=== PATIENT | female | born 1965 | race Caucasian/White ===

== ENCOUNTER 2019-03-30 18:19 | Observation (INO) | payer BC ==
[2019-03-30 18:51] LABS: Basophils % 0.4 % (0-1.3); Hematocrit 36.5 % (36.0-45.0); Lymphocytes % 15.2 % (15.3-44.8); MPV 8.6 fL (7.6-11.3); RBC Red Blood Cell Count 3.87 M/uL (3.86-4.86)
[2019-03-30 18:56] LABS: Protime INR 0.96
[2019-03-30] MEDS ORDERED: ASPIRIN 81 MG CHEWABLE TABLET ONE (19:13)
[2019-03-30] MEDS ORDERED: ONDANSETRON 4 MG/2 ML VIAL ONE ×2 (19:13→20:17)
[2019-03-30] MEDS ORDERED: MORPHINE 4 MG/ML SYR ONE (19:13)
[2019-03-30] MEDS ORDERED: FAMOTIDINE 20 MG/2 ML VIAL IV ONE (19:14)
[2019-03-30 19:15] LABS: ALT/SGPT 25 U/L (12-78); AST/SGOT 33 U/L (15-37); Albumin 3.8 g/dL (3.4-5.0); Alkaline Phosphatase 88 U/L (45-117); BUN Blood Urea Nitrogen 13 mg/dL (7-18); Bicarbonate 27 mmol/L (21-32); Bilirubin Direct 0.2 mg/dL (0-0.2); Bilirubin Total 0.3 mg/dL (0.2-1.0); Glucose Level 121 mg/dL (74-106); Magnesium 2.1 mg/dL (1.8-2.4); NT PRO-BNP 37 pg/mL (<125); Potassium 3.9 mmol/L (3.5-5.1); Sodium Level 144 mmol/L (136-145); Troponin (Emerg Dept Use Only) < 0.02 ng/mL (0.0-0.045)
--- NOTE | 2019-03-30 20:01 | ER ---
Nurse's Notes [facility] Name: Alva Leroy Age: 53 yrs Sex: Female : 1965 Arrival Date: 03/30/2019 Time: 18:21 Bed 7 Private MD: Diagnosis: Chest pain, unspecified;Abdominal tenderness Presentation: 03/30 18:23 Presenting complaint: Patient states: chest pain radiating to right jaw that began aa5 30mins [employer]. Pt reports mild SOB. Reports nonproductive cough. Transition of care: patient was not received from another setting of care. Onset of symptoms was March 30, 2019. Risk Assessment: Do you want to hurt yourself or someone else? Patient reports no desire to harm self or others. Initial Sepsis Screen: Does the patient meet any 2 criteria? No. Patient's initial sepsis screen is negative. Does the patient have a suspected source of infection? No. Patient's initial sepsis screen is negative. Care prior to arrival: None. 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 - Social history:: Smoking status: Patient uses tobacco products, 5 cigarettes day . - Ebola Screening: : No symptoms or risks identified at this time. Screenin:58 Abuse screen: Denies threats or abuse. Denies injuries from another. Nutritional sg screening: No deficits noted. Tuberculosis screening: No symptoms or risk factors identified. Never had TB. Fall Risk None identified. Assessment: 18:57 General: Appears in no apparent distress. uncomfortable, well groomed, well developed, sg well nourished, Behavior is calm, cooperative, appropriate for age. Pain: Complains of pain in chest Quality of pain is described as aching. Neuro: Level of Consciousness is awake, alert, obeys commands, Oriented to person, place, time. Cardiovascular: Capillary refill is brisk in bilateral fingers Patient's skin is warm and dry. Chest pain is described as mild, quality is crushing, sharp, stabbing, is located in anterior chest wall radiates to left arm(s) back jaw(s). Respiratory: Airway is patent Respiratory effort is even, unlabored, Respiratory pattern is regular, symmetrical. GI: Abdomen is round non-distended. : No signs and/or symptoms were reported regarding the genitourinary system. EENT: No signs and/or symptoms were reported regarding the EENT system. Derm: Skin is pink, warm \T\ dry. vitiligo noted. Musculoskeletal: Circulation, motion, and sensation intact. Range of motion: intact in all extremities. 19:30 Reassessment: Patient appears in no apparent distress at this time. Patient and/or cc3 family updated on plan of care and expected duration. Pain level reassessed. Patient is alert, oriented x 3, equal unlabored respirations, skin warm/dry/pink. Received this female patient from morning shift RN Chaka as a case of chest pain, with IV cannula gauge 22 at the right ACV saline locked. General: Appears in no apparent distress. uncomfortable, Behavior is calm, cooperative, appropriate for age. Pain: Complains of pain in left arm and left jaw and chest. Neuro: Level of Consciousness is awake, alert, obeys commands, Oriented to person, place, time, situation, Appropriate for age. Cardiovascular: Capillary refill < 3 seconds in bilateral fingers Patient's skin is warm and dry. Rhythm is regular. Respiratory: Airway is patent Respiratory effort is even, unlabored, Respiratory pattern is regular, symmetrical, Breath sounds are clear bilaterally. GI: Abdomen is round non-distended. : No signs and/or symptoms were reported regarding the genitourinary system. EENT: No signs and/or symptoms were reported regarding the EENT system. Derm: Skin is intact, is healthy with good turgor, Skin is pink, warm \T\ dry. normal. Musculoskeletal: Circulation, motion, and sensation intact. Range of motion: intact in all extremities. 20:25 Reassessment: Patient appears in no apparent distress at this time. Patient and/or cc3 family updated on plan of care and expected duration. Pain level reassessed. Patient is alert, oriented x 3, equal unlabored respirations, skin warm/dry/pink. 21:10 Reassessment: Patient appears in no apparent distress at this time. Patient and/or cc3 family updated on plan of care and expected duration. Pain level reassessed. Patient is alert, oriented x 3, equal unlabored respirations, skin warm/dry/pink. Patient for admission, Dr. Rosenbaum at bedside. Patient states feeling better. Patient states symptoms have improved. 22:00 Pain: Complains of pain in chest Pain radiates to jaw and left shoulder Pain began jd3 suddenly. 22:00 General: Appears in no apparent distress. comfortable, Behavior is calm, cooperative, jd3 appropriate for age. Neuro: Level of Consciousness is awake, alert, obeys commands, Oriented to person, place, time, situation. Cardiovascular: Capillary refill < 3 seconds Patient's skin is warm and dry. Rhythm is regular. Respiratory: Airway is patent Respiratory effort is even, unlabored, Respiratory pattern is regular, symmetrical. GI: No signs and/or symptoms were reported involving the gastrointestinal system. : No signs and/or symptoms were reported regarding the genitourinary system. EENT: No signs and/or symptoms were reported regarding the EENT system. Derm: Skin is intact, Skin is dry, Skin is normal, Skin temperature is warm. Musculoskeletal: Circulation, motion, and sensation intact. Range of motion: intact in all extremities. Vital Signs: 18:25 BP 166 / 75; Pulse 86; Resp 16 S; Temp 97.7(TE); Pulse Ox 97% on R/A; Weight 73.94 kg aa5 (R); Height 5 ft. 7 in. (170.18 cm) (R); Pain 7/10; 19:22 BP 138 / 58; Pulse 79; Resp 18 S; Pulse Ox 97% on R/A; cc3 20:00 BP 133 / 65; Pulse 75; Resp 19 S; Pulse Ox 98% on R/A; cc3 21:30 BP 113 / 76; Pulse 65; Resp 18 S; Pulse Ox 97% on R/A; cc3 22:30 BP 133 / 63; Pulse 70; Resp 19 S; Pulse Ox 96% on R/A; cc3 23:17 BP 128 / 55; Pulse 65; Resp 18 S; Pulse Ox 100% on R/A; jd3 18:25 Body Mass Index 25.53 (73.94 kg, 170.18 cm) aa5 ED Course: 18:21 Patient arrived in ED. aa5 18:23 Arm band placed on. aa5 18:24 Triage completed. aa5 18:26 EKG completed in triage. Results shown to MD. aa5 18:29 Roger Mg MD is Attending Physician. kdr 18:56 Initial lab(s) drawn, by ak, sent to lab. Inserted saline lock: 22 gauge in right sg antecubital area, using aseptic technique. Blood collected. 19:31 Sunitha Leavitt is Primary Nurse. cc3 19:47 Attending Physician role handed off by Roger Mg MD [facility] 19:47 Rich Avilez MD is Attending Physician. jac 19:59 Stanislav Rosenbaum MD is Hospitalizing Provider. [facility] 22:00 Report given to YESICA Ospina. cc3 22:00 Patient has correct armband on for positive identification. Placed in gown. Bed in low jd3 position. Call light in reach. Side rails up X 1. Adult w/ patient. environmental monitoring technician on. Pulse ox on. NIBP on. 23:10 No provider procedures requiring assistance completed. Patient admitted, IV remains in jd3 place. Patient maintains SpO2 saturation greater than 95% on room air. 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.} sg Route: PO; 20:00 Follow up: Response: No adverse reaction cc3 20:15 Drug: fentaNYL (PF) 25 mcg {Note: RASS 0.} Route: IVP; Site: right antecubital; cc3 22:00 Follow up: Response: No adverse reaction; RASS: Alert and Calm (0) jd3 20:20 Drug: Zofran 4 mg Route: IVP; Site: right antecubital; cc3 22:00 Follow up: Response: No adverse reaction jd3 21:30 Drug: fentaNYL (PF) 25 mcg {Note: RASS 0.} Route: IVP; Site: right antecubital; cc3 23:16 Follow up: Response: No adverse reaction; RASS: Alert and Calm (0) jd3 21:35 Drug: Lopressor 25 mg {Note: HR 70 bpm, BP 113/76 mmHg.} Route: PO; cc3 22:35 Follow up: Response: No adverse reaction jd3 21:36 Drug: Lovenox 70 mg Route: Sub-Q; Site: right lower abdomen; cc3 22:30 Follow up: Response: No adverse reaction jd3 21:43 Not Given (Physician Discretion): Lopressor 2.5 mg IVP once; Hold for SBP <100 or HR cc3 <60. 21:43 Not Given (Physician Discretion): Lopressor 2.5 mg IVP once; Hold for SBP <100 or HR cc3 <60. 21:50 Drug: Tussionex Pennkinetic ER 5 ml Route: PO; cc3 22:50 Follow up: Response: No adverse reaction jd3 Outcome: 20:00 Decision to Hospitalize by Provider. jac 23:14 Admitted to Tele accompanied by tech, via wheelchair, room 224. jd3 23:14 Condition: stable 23:14 Instructed on the need for admit, Demonstrated understanding of instructions. 23:27 Patient left the ED. jd3 Signatures: Chaka Gipson RN RN sg Anderson, Corey, MD MD cha Rittger, Kevin, MD MD kdr Calderon, Audri, RN RN aa5 Davies, Jonathon, RN RN jd3 Sunitha Leavitt cc3 Corrections: (The following items were deleted from the chart) 23:14 22:00 Pain: Complains of pain in chest Pain radiates to jaw and left shoulder jd3 jd3 23:16 22:30 Response: No adverse reaction jd3 jd3
--- NOTE | 2019-03-30 20:01 | EDPHYS ---
Physician Documentation [facility] Name: Alva Leroy Age: 53 yrs Sex: Female : 1965 Arrival Date: 03/30/2019 Time: 18:21 Bed 7 Private MD: ED Physician Rich Avilez HPI: 03/30 18:55 This 53 yrs old Female presents to ER via Wheelchair with complaints of Chest kdr Pain. 18:55 The patient or guardian reports chest pain that is located primarily in the anterior kdr chest wall, bilaterally. Onset: The patient states that her symptoms started yesterday with a mild non-productive cough and that today it has become worse until she started to have severe chest pain that radiated to her shoulders and her right jaw. She was SOB but not diaphoretic . The pain radiates to the left shoulder, the right shoulder, right jaw. Associated signs and symptoms: Pertinent positives: nausea, shortness of breath, Pertinent negatives: diaphoresis. The chest pain is described as aching, a pressure, sharp. Duration: The patient or guardian reports multiple episodes, that are intermittent, that wax and wane, with no pattern. Modifying factors: The symptoms are alleviated by nothing. the symptoms are aggravated by breathing, cough, emotionally stressful situations. Severity of pain: At its worst the pain was severe incapacitating just prior to arrival, in the emergency department the pain has improved mildly. The patient has not experienced similar symptoms in the past. The patient has not recently seen a physician. 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 - Social history:: Smoking status: Patient uses tobacco products, 5 cigarettes day . - Ebola Screening: : No symptoms or risks identified at this time. ROS: 18:55 Constitutional: Negative for fever, chills, and weight loss, Eyes: Negative for injury, kdr pain, redness, and discharge, Neck: Negative for injury, pain, and swelling, Cardiovascular: Negative for chest pain, palpitations, and edema, Respiratory: Negative for shortness of breath, cough, wheezing, and pleuritic chest pain, Abdomen/GI: Negative for abdominal pain, nausea, vomiting, diarrhea, and constipation, Back: Negative for injury and pain, : Negative for injury, bleeding, discharge, and swelling, Skin: Negative for injury, rash, and discoloration, Neuro: Negative for headache, weakness, numbness, tingling, and seizure activity. Psych: Negative for depression, anxiety, suicide ideation, homicidal ideation, and hallucinations, Allergy/Immunology: Negative for hives, rash, and allergies, Endocrine: Negative for neck swelling, polydipsia, polyuria, polyphagia, and marked weight changes, Hematologic/Lymphatic: Negative for swollen nodes, abnormal bleeding, and unusual bruising. 18:55 Cardiovascular: Positive for chest pain, with cough, Negative for edema, orthopnea, palpitations, paroxysmal nocturnal dyspnea. Exam: 18:55 Constitutional: This is a well developed, well nourished patient who is awake, alert, kdr and in mild distress. Head/Face: Normocephalic, atraumatic. Eyes: Pupils equal round and reactive to light, extra-ocular motions intact. Lids and lashes normal. Conjunctiva and sclera are non-icteric and not injected. Cornea within normal limits. Periorbital areas with no swelling, redness, or edema. Neck: Trachea midline, no thyromegaly or masses palpated, and no cervical lymphadenopathy. Supple, full range of motion without nuchal rigidity, or vertebral point tenderness. No Meningismus. Chest/axilla: Normal chest wall appearance and motion. Nontender with no deformity. No lesions are appreciated. Cardiovascular: Regular rate and rhythm with a normal S1 and S2. No gallops, murmurs, or rubs. Normal PMI, no JVD. No pulse deficits. Respiratory: Lungs have equal breath sounds bilaterally, clear to auscultation and percussion. No rales, rhonchi or wheezes noted. No increased work of breathing, no retractions or nasal flaring. Abdomen/GI: Soft, non-tender, with normal bowel sounds. No distension or tympany. No guarding or rebound. No evidence of tenderness throughout. Back: No spinal tenderness. No costovertebral tenderness. Full range of motion. Skin: Warm, dry with normal turgor. Normal color with no rashes, no lesions, and no evidence of cellulitis. MS/ Extremity: Pulses equal, no cyanosis. Neurovascular intact. Full, normal range of motion. Neuro: Awake and alert, GCS 15, oriented to person, place, time, and situation. Cranial nerves II-XII grossly intact. Motor strength 5/5 in all extremities. Sensory grossly intact. Cerebellar exam normal. Normal gait. Psych: Awake, alert, with orientation to person, place and time. Behavior, mood, and affect are within normal limits. Vital Signs: 18:25 BP 166 / 75; Pulse 86; Resp 16 S; Temp 97.7(TE); Pulse Ox 97% on R/A; Weight 73.94 kg aa5 (R); Height 5 ft. 7 in. (170.18 cm) (R); Pain 7/10; 19:22 BP 138 / 58; Pulse 79; Resp 18 S; Pulse Ox 97% on R/A; cc3 20:00 BP 133 / 65; Pulse 75; Resp 19 S; Pulse Ox 98% on R/A; cc3 21:30 BP 113 / 76; Pulse 65; Resp 18 S; Pulse Ox 97% on R/A; cc3 22:30 BP 133 / 63; Pulse 70; Resp 19 S; Pulse Ox 96% on R/A; cc3 23:17 BP 128 / 55; Pulse 65; Resp 18 S; Pulse Ox 100% on R/A; jd3 18:25 Body Mass Index 25.53 (73.94 kg, 170.18 cm) aa5 MDM: 18:55 Data reviewed: vital signs, nurses notes, lab test result(s), radiologic studies. kdr 19:47 Patient medically screened. jac 03/30 18:29 Order name: Basic Metabolic Panel [facility] 03/30 18:29 Order name: CBC with Diff [facility] 03/30 18:29 Order name: LFT's [facility] 03/30 18:29 Order name: Magnesium [facility] 03/30 18:29 Order name: NT PRO-BNP [facility] 03/30 18:29 Order name: PT-INR [facility] 03/30 18:29 Order name: Troponin (emerg Dept Use Only) [facility] 03/30 18:57 Order name: Protime (+INR); Complete Time: 19:57 [facility] 03/30 18:58 Order name: CBC with Automated Diff; Complete Time: 19:57 [facility] 03/30 19:16 Order name: Basic Metabolic Panel; Complete Time: 19:57 [facility] 03/30 19:16 Order name: Liver (Hepatic) Function; Complete Time: 19:57 [facility] 03/30 19:16 Order name: Troponin (Emerg Dept Use Only); Complete Time: 19:57 [facility] 03/30 19:16 Order name: NT PRO-BNP; Complete Time: 19:57 [facility] 03/30 19:16 Order name: Magnesium; Complete Time: 19:57 [facility] 03/30 18:29 Order name: XRAY Chest (1 view) [facility] 03/30 19:58 Order name: Lipase [facility] 03/30 19:58 Order name: CT Chest For PE Angio [facility] 03/30 20:19 Order name: Lipase; Complete Time: 20:25 [facility] 03/30 20:45 Order name: RAD; Complete Time: 21:32 [facility] 03/30 20:45 Order name: CT; Complete Time: 21:32 [facility] 03/30 18:29 Order name: EKG; Complete Time: 18:30 [facility] 03/30 18:29 Order name: Cardiac monitoring; Complete Time: 18:59 [facility] 03/30 18:29 Order name: EKG - Nurse/Tech; Complete Time: 18:59 [facility] 03/30 18:29 Order name: IV Saline Lock; Complete Time: 18:59 [facility] 03/30 18:29 Order name: Labs collected and sent; Complete Time: 18:59 [facility] 03/30 18:29 Order name: O2 Per Protocol; Complete Time: 18:59 [facility] 03/30 18:29 Order name: O2 Sat Monitoring; Complete Time: 18:59 kdr Administered Medications: 19:10 Drug: morphine 4 mg Route: IVP; Site: right antecubital; sg 20:00 Follow up: Response: No adverse reaction; Pain is unchanged, physician notified; RASS: cc3 Alert and Calm (0) 19:10 Drug: Zofran 4 mg Route: IVP; Site: right antecubital; sg 20:00 Follow up: Response: No adverse reaction; Nausea is decreased cc3 19:10 Drug: Pepcid 20 mg Route: IVP; Site: right antecubital; sg 20:00 Follow up: Response: No adverse reaction cc3 19:15 Drug: Aspirin Chewable Tablet 162 mg {Note: 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.} sg Route: PO; 20:00 Follow up: Response: No adverse reaction cc3 20:15 Drug: fentaNYL (PF) 25 mcg {Note: RASS 0.} Route: IVP; Site: right antecubital; cc3 22:00 Follow up: Response: No adverse reaction; RASS: Alert and Calm (0) jd3 20:20 Drug: Zofran 4 mg Route: IVP; Site: right antecubital; cc3 22:00 Follow up: Response: No adverse reaction jd3 21:30 Drug: fentaNYL (PF) 25 mcg {Note: RASS 0.} Route: IVP; Site: right antecubital; cc3 23:16 Follow up: Response: No adverse reaction; RASS: Alert and Calm (0) jd3 21:35 Drug: Lopressor 25 mg {Note: HR 70 bpm, BP 113/76 mmHg.} Route: PO; cc3 22:35 Follow up: Response: No adverse reaction jd3 21:36 Drug: Lovenox 70 mg Route: Sub-Q; Site: right lower abdomen; cc3 22:30 Follow up: Response: No adverse reaction jd3 21:43 Not Given (Physician Discretion): Lopressor 2.5 mg IVP once; Hold for SBP <100 or HR cc3 <60. 21:43 Not Given (Physician Discretion): Lopressor 2.5 mg IVP once; Hold for SBP <100 or HR cc3 <60. 21:50 Drug: Tussionex Pennkinetic ER 5 ml Route: PO; cc3 22:50 Follow up: Response: No adverse reaction jd3 Disposition: 03/30/19 20:00 Hospitalization ordered by Stanislav Rosenbaum for Observation. Preliminary diagnosis are Chest pain, unspecified, Abdominal tenderness. - Bed requested for Telemetry/MedSurg (Inpatient). - Status is Observation. jd3 - Condition is Fair. - Problem is new. - Symptoms have improved. UTI on Admission? No Signatures: Dispatcher [employer] EDChaka Nicholas, RN Rich Danielle MD MD cha Rittger, Kevin, MD MD kdr Calderon, Audri, RN RN aa5 Garcia, Cindy, RN RN cg Davies, Jonathon, RN RN jd3 Sunitha Leavitt cc3 Corrections: (The following items were deleted from the chart) 22:39 20:00 Hospitalization Ordered by Stanislav Rosenbaum MD for Observation. Preliminary cg diagnosis is Chest pain, unspecified; Abdominal tenderness. Bed requested for Telemetry/MedSurg (Inpatient). Status is Observation. Condition is Fair. Problem is new. Symptoms have improved. UTI on Admission? No. jac 23:27 22:39 03/30/2019 20:00 Hospitalization Ordered by Stanislav Rosenbaum MD for Observation. jd3 Preliminary diagnosis is Chest pain, unspecified; Abdominal tenderness. Bed requested for Telemetry/MedSurg (Inpatient). Status is Observation. Condition is Fair. Problem is new. Symptoms have improved. UTI on Admission? No. cg
[2019-03-30] MEDS ORDERED: FENTANYL CITR 100 MCG/2 ML ONE (20:17)
--- NOTE | 2019-03-30 20:40 | RAD REPORT ---
EXAM DESCRIPTION: RAD - Chest Single View - 03/30/2019 7:05 pm CLINICAL HISTORY: Chest pain COMPARISON: None. TECHNIQUE: AP portable chest image was obtained 1901 hours . FINDINGS: Lungs are clear. Heart and vasculature are normal. No measurable pleural effusion and no p neumothorax. No acute bony abnormality seen. No acute aortic findings suspected. IMPRESSION: No acute cardiopulmonary process.
--- NOTE | 2019-03-30 20:42 | RAD REPORT ---
EXAM DESCRIPTION: CT - Chest For Pe Angio - 03/30/2019 8:28 pm CLINICAL HISTORY: Abdominal distention;Pain;PE;Dissection COMPARISON: Chest Single View dated 03/30/2019 TECHNIQUE: Dynamically enhanced 3 mm thick images of the chest were obtained during administration o f approximately 150mL Isovue 370 IV contrast. Coronal and oblique MIP reconstruction images were gene rated and reviewed. Exam utilizes a protocol to evaluate the pulmonary arterial tree. All CT scans are performed using dose optimization technique as appropriate and may include automated exposure control or mA/KV adjustment according to patient size. FINDINGS: No pulmonary emboli are identified. The aorta as imaged shows no acute or suspicious finding. No pericardial thickening or effusion. No peripheral mass consolidation. No pleural effusion or pleural thickening. Nonspecific mediastinal and hilar lymph nodes are present. Prominent subcarinal soft tissues. This ma y all be reactive lymphadenopathy but needs ongoing monitoring. Re-evaluation in 2- 3 months is recom mended to monitor for stability. No chest wall masses or abnormal axillary lymphadenopathy. Bilateral breast implants in place. IMPRESSION: No pulmonary emboli identified. Mediastinal and hilar lymphadenopathy is present without a focal lung parenchymal process. Follow-up imaging with CT chest in 2- 3 months would be recommended for reassessment.
[2019-03-30] MEDS ORDERED: METOPROLOL TAR 25 MG TAB ONE (21:25)
[2019-03-30] MEDS ORDERED: ENOXAPARIN 80 MG/0.8 ML SQ ONE (21:25)
[2019-03-30] MEDS ORDERED: METOPROLOL TARTRATE 5 MG/5 ML INJ IV ONE (21:25)
[2019-03-30] MEDS ORDERED: HYDROCODONE/CHLORPHEN 5 ML/OSYR ONE (21:57)
[2019-03-30] MEDS ORDERED: ONDANSETRON 4 MG/2 ML VIAL IV PRN (22:27)
[2019-03-30] MEDS ORDERED: MORPHINE 2 MG/ML SYR IV PRN (22:27)
[2019-03-30] MEDS ORDERED: ALBUTEROL 2.5 MG/3 ML NEB SOL NEB PRN (22:27)
[2019-03-30] MEDS ORDERED: Oxycodone HCl/Acetaminophen 1 TAB TAB PO PRN (22:30)
[2019-03-30] MEDS ORDERED: GUAIFENESIN/DM 5 ML UCUP PO PRN (22:30)
[2019-03-30] MEDS ORDERED: HYDRALAZINE HCL 20 MG/ML VIAL IV PRN (22:30)
[2019-03-30] MEDS: NITROGLYCERIN 0.2 MG/HR (5 MG) PATCH TD SCH (22:33)
[2019-03-30] MEDS ORDERED: MELATONIN 5 MG TABLET PO PRN (22:36)
[2019-03-30] MEDS ORDERED: NA CHLORIDE 0.9% 1,000 ML IV SCH (23:00)
[2019-03-31 00:09] LABS: Thyroid Stimulating Hormone 0.012 uIU/mL (0.360-3.740); Troponin I < 0.02 ng/mL (0.0-0.045)
[2019-03-31] MEDS: GUAIFENESIN 600 MG SA TAB PO SCH ×2 (00:14→08:42)
[2019-03-31] MEDS: NAPROXEN 250 MG TAB PO SCH ×2 (00:14→08:42)
[2019-03-31] MEDS: FAMOTIDINE 20 MG TAB PO SCH ×2 (00:14→08:42)
--- NOTE | 2019-03-31 00:33 | HP ---
Date of Admission: 03/30/2019 Presenting Complaint: Substernal chest pain. History Of Present Illness: Ms. Alva Leroy is a 53-year-old female with history of hypothyroidism and breast augmentation, who presented with onset of chest pain while driving this ev ening. Patient states pain was in the substernal area. She described pain as more like sharp, nonra diating. She also developed pain in her right jaw. Also, pain in the right jaw was spreading down t o the right shoulder. Patient denies any shortness of breath. Pain continued and did not resolve af ter she stopped and took aspirin. On arrival in the ED, she was given morphine, which has improved p ain from 6/10 to 2/10 now. She admits to recent cough with rhinorrhea and chest congestion about a w [place] ago. She denies any cough contacts. She denies any dizziness or sputum production now. She den ies any fever or chills. Past Medical History: Hypothyroidism, history of vitiligo, previously treated with phototherapy. Past Surgical History: Hysterectomy and breast augmentation. Allergies: KEFLEX. Social History: Patient denies any tobacco or alcohol use. She resides in the area. 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 Family History: No history of CAD. Home Medications: Include estradiol, trazodone p.r.n. only as well as [place] Thyroid. Review of Systems: All systems reviewed x14 were negative except as mentioned above. Patient states she developed epiga stric abdominal pain with cramps after she was given morphine in the ED. The symptoms resolved after about 20 minutes. Physical Examination: Current Vitals: Blood pressure of 166/75, pulse of 86, respiratory rate of 16, O2 saturation 97% on room air, temperature afebrile at 97.7. General: Middle-aged female, slightly overweight, not in any distress. HEENT: Head is atraumatic, normocephalic. Pupils equal, reactive to light. Extraocular motor movements intact. Neck: No JVD. No carotid bruit. Respiratory: Good air entry bilaterally. No crepitations. Chest: Mild tenderness bilateral anterior chest wall extending to bilateral shoulders. Cardiovascular: S1, S2. Rate and rhythm regular. GI: Abdomen is full, soft. No epigastric tenderness. Bowel sounds positive. Extremities: No calf tenderness. No pedal edema. Integumentary: Noted hypopigmented patches over the chest and extremities. Patient admits to histor y of vitiligo. Laboratory Data: EKG shows normal sinus rhythm at 87 beats per minute. No ST-segment changes. Chest x-ray shows no acute infiltrate. CT of the chest shows no PE, but small reactive mediastinal lymphadenopathy. Followup CT in 3 months recommended. Sodium 144, potassium 3.9, BUN 13, creatinine 0.9, glucose 121, magnesium 2.1. ProBNP of 37. Tropon in less than 0.01. Amylase 125. WBC 6.6, hemoglobin 12.9, platelets 177, neutrophils 72%. Impression: 1.Atypical chest pain, likely costochondritis. 2.Recent upper respiratory tract infection. 3.History of hypothyroidism. Plan: 1.We will admit patient. We do serial set of cardiac enzymes. We will admit to telemetry floor. W e will start patient on nitroglycerin patch and follow. 2.We will also start patient on naproxen for suspected costochondritis. We will do heparin for DVT prophylaxis. Total time spent in evaluation of patient and discussion, greater than 60 minutes. EO/MODL Voice ID: [id number]
[2019-03-31 00:39] VITALS: O2SAT 98
[2019-03-31] MEDS: HEPARIN 5000 UNIT/ML 1 ML VIAL SQ SCH ×2 (01:00→08:09)
[2019-03-31 01:31] VITALS: BMI 26.6
[2019-03-31] MEDS: NITROGLYCERIN 0.2 MG/HR (5 MG) PATCH TD SCH (08:07)
[2019-03-31] MEDS ORDERED: BENZONATATE 100 MG CAP PO PRN (08:17)
--- NOTE | 2019-03-31 08:23 | EKG ---
Test Date: 2019-03-30 Test Time: 18:26:07 Manager Search Engine: HB MEASUREMENT RESULTS: Intervals: Rate: 87 NC: 150 QRSD: 76 QT: 372 QTc: 447 [place]: P: 58 NC: 150 QRS: 40 T: 39 INTERPRETIVE STATEMENTS: Normal sinus rhythm Normal ECG No previous ECG available for comparison Electronically Signed On 03-31-19 08:22:50 COILER by Shen Cagle
[2019-03-31] MEDS ORDERED: HOME MED 1 EA UNK (Thyroid,Pork [Armour Thyroid] 120 MG) PO SCH (09:00)
[2019-03-31] MEDS ORDERED: NICOTINE 7 MG/PAT TD SCH (09:00)
[2019-03-31 09:16] VITALS: BP 119/56; TEMP 97.1
--- NOTE | 2019-03-31 10:33 | CON ---
History Of Present Illness: Ms. Leroy is 53. She came to the hospital with chest pain. She live s in [place]. She was visiting friends. She is about 50 miles from home. She had pain while driv ing. The pain was left pectoral, left scapula. She felt some pain in the jaws. She noted every toshia e she took a deep breath that hurt worse. Morphine made it worse. Fentanyl made it better. The pat dottie has never had myocardial infarction or stroke. She does not have diabetes. She is a cigarette smoker, although she has only smoked for the last 2 years. She had thyroid cancer, most of her thyro id removed. Takes [place] Thyroid, also estradiol. Physical Examination: Vital Signs: Height 5 feet 7 inches, 169 pounds. HEENT: Unremarkable. Lungs: Clear. Cardiac: Within normal limits. Abdomen: Soft. Extremities: Normal. Distal pulses normal. Laboratory Data And Imaging: EKG normal. Cardiac enzymes normal. Chest x-ray normal. CT angio of the chest is normal. Impression: Ms. Leroy has noncardiac pain. It is probably musculoskeletal, not a pulmonary embol us, not a dissection. She is stable enough to be discharged. She should undergo stress test and ech ocardiogram as an outpatient. Thank you very much for your kind referral of Ms. Leroy. I will follow her with you. KAT Voice ID: [id number] Report ID: [id number]
[2019-03-31] MEDS ORDERED: ENOXAPARIN 40 MG/0.4 ML SQ SCH (17:00)
--- NOTE | 2019-03-31 22:07 | DS ---
Date of Discharge: 03/31/2019 Consultants: Dr. Cagle. Procedures: None. Discharge Diagnoses: 1.Atypical chest pain, likely costochondritis. 2.Recent upper respiratory tract infection. 3.History of hypothyroidism, postsurgical. Hospital Course: Patient is a 53-year-old female, who has had some upper respiratory tract infection , has been coughing significantly without much sputum production, developed some chest pain, tightnes s, radiating to the jaw, was admitted to the hospital for further workup. No history of premature co ronary artery disease in the family. Patient does not take any medications for blood pressure, diabe radu, or cholesterol. She had a workup including cardiac enzymes, which were negative. EKG did not s how any acute changes. Her chest x-ray was clear. CT angio of the chest was negative for PE. There was some reactive mediastinal lymphadenopathy, which needs to be followed up in 3 months. Patient w as informed of these findings. She understands that follow up with repeat imaging is important to av oid missing any further increase in the lymphadenopathy, which may indicate more sinister diagnosis s uch as granulomas, lymphomas, cancer, etc. Patient has a prior history of smoking, not currently smo nita. Patient was on estradiol. Therefore, PE was suspected, however, was not positive. Flu screen was also completed, which was negative. Patient was seen by Cardiology, recommended outpatient stre ss test and echocardiogram. Patient felt better with symptomatic treatment. She was then cleared fo r discharge and sent home in a stable condition. Activity: As tolerated. Medications: As per medication reconciliation list. Followup: Follow up with primary care physician in 2-3 days. Follow up with leather sorter, Dr. Janelle marks in 2 weeks. Return to ER for worsening condition. Physical Examination: General: Awake, alert, and oriented x3. No acute distress. CV: S1, S2. Respiratory: Moving air well bilaterally. Abdomen: Abdomen is soft, nontender, nondistended. Positive bowel sounds. Extremities: No clubbing, cyanosis, or edema. Neurologic: Nonfocal. SA/MODL Voice ID: [id number] Report ID: [id number]
[2019-04-01] MEDS ORDERED: THYROID 30 MG TAB PO SCH (06:00)
== END 2019-03-31 11:20 | disposition home or self-care (01) ==
LOC: ER 18:19 → ERHOLD 23:02 → 2ND 23:17
PROVIDERS: ADMIT Internal Medicine; ATTEND Internal Medicine
DX: R07.89 Other chest pain (principal); E03.9 Hypothyroidism, unspecified
CPT/HCPCS: 36415; 71045; 71275; 80048; 80076; 83690; 83735; 83880; 84443; 84484; 85025; 85610; 87804; 93005; 94640; 96372; 96374; 96375; 99285; G0378; J1650; J2405; J3010; J7030; Q9967